=== PATIENT | male | born 1970 | race American Indian/Alaskan Native ===

== ENCOUNTER 2024-10-05 14:07 | Outpatient (RCR) | payer MEDICAID, SELFPAY ==
--- NOTE | 2024-10-11 02:07 | CTCFLWUP_ITS ---
Patient: JUANCARLOS BROWN : 1970 Page 2 of 3 FOLLOW UP NOTE DATE OF SERVICE: 10/05/2024 NAME: JUANCARLOS BROWN ACCOUNT: [id number] : 1970 AGE: 53 INTERVAL HISTORY: Patient has not followed with oncology and is now here for establishing care. 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 S/p segmental colectomy with colostomy placement on 02/04/2023. Currently on adjuvant 5-FU and leucovorin Methamphetamine abuse. Has been abusing for last 30 years. Last use was on 02/02/2023. Intermittent cocaine abuse. REASON FOR TODAY?S VISIT: Patient is saying that he did not continue his chemotherapy as per plan. He is requesting to restart him on treatment malignant neoplasm of sigmoid colon [ICD10] C18.7 DATE OF DIAGNOSIS: 02/02/2023 PATHOLOGY: Low-grade invasive adenocarcinoma of the sigmoid colon STAGE/TNM: Stage II [id number] TREATMENT HISTORY: Care?Plan Start?Date Cycle Day Intent 5?FU?and?leucovorin 03/17/2023 1 56 Curative?(adjuvant) HISTORY OF PRESENT ILLNESS: Juancarlos Brown is a 53-year-old ENG speaking male with history of methamphetamine use for last 30 years last use was on 02/02/2023 as well as cocaine use intermittently has the following oncology history. 11/08/2022: The patient was brought into emergency room by EMS because of unresponsiveness. He was administered Narcan. Patient eventually recovered very well. Patient admitted to cocaine use. 02/02/2023: Patient was seen at [facility] emergency department for abdominal pain and distention of [address] scan of the abdomen and pelvis without contrast was obtained. 02/04/2023: Mr. Brown had exploratory laparotomy, resection of the distal descending colon and sigmoid with end descending colostomy, incidental appendectomy. 02/06/2023: CT scan of the chest abdomen and pelvis with IV contrast 02/19/2023: Mr. Brown had ankush removed from the incision site. OTHER MEDICAL HISTORY/CONDITIONS: colon?mony?high?blood?pressue laser to stomach due to ulceration advil od. FAMILY HISTORY: Cancer History:? 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 None Medications Last Reconciled by Sirena Ortiz MD on 10/05/2024 ALLERGIES: No Known Drug Allergies REVIEW OF SYSTEMS: A complete 14-point review of systems was performed and is negative except as noted in interval history. PHYSICAL EXAMINATION: VITAL SIGNS: Temperature?98.3, B/P?133/85, Oxygen?Saturation?96% Weight?199?lbs PAIN: 0 - No pain ECOG Performance Status: 0 - Asymptomatic and fully active GENERAL APPEARANCE: Appears well, in no apparent distress, appropriately interactive. HEENT: Normocephalic, no temporal wasting, normal conjunctiva, no scleral icterus, normal hearing, lips without lesions, neck normal range of motion. CARDIOVASCULAR: Not assessed. PULMONARY: Normal respiratory effort, no respiratory distress or use of accessory muscles, speaking in full sentences, no tachypnea. EXTREMITIES: No pedal edema or cyanosis. SKIN: Normal skin appearance. NEUROLOGIC: Alert and oriented x4. PSHYCHIATRIC: Appropriate affect, mood normal, behavior normal, intact thought and speech. LABORATORY DATA: I have personally reviewed and interpreted each of the patient?s relevant lab tests, abnormal findings are below: Date 06/20/23 07/18/23 ??WHITE?BLOOD?COUNT?(Thou/mm3) ? 8.6 ??RED?BLOOD?COUNT?(Miln/mm3) ? 4.47?L ??HEMOGLOBIN?(gm/dl) ? 13.7 ??HEMATOCRIT?(%) ? 40.2?L ??PLATELET?COUNT?(Thou/mm3) ? 239 ??NEUTROPHILS?%,?AUTO?(%) ? 65 ??LYMPH?%,?AUTO?(%) ? 18 ??NEUTROPHILS,?AUTO?(Thou/mm3) ? 5.6 ??GLUCOSE,RANDOM?(mg/dL) 106 90 ??BLOOD?UREA?NITROGEN?(mg/dL) 15 17 ??CREATININE?(mg/dL) 0.90 0.90 ??SODIUM?(mmol/L) 138 139 ??POTASSIUM?(mmol/L) 3.8 3.1?L ??CHLORIDE?(mmol/L) 109?H 107 ??CrCl?(CandG)?(ml/min) 115.73 113.81 ??AST/SGOT?(Unit/L) 15 39?H ??ALT/SGPT?(Unit/L) 9?L 16 ??ALKALINE?PHOSPHATASE?(Unit/L) 79 86 ??BILIRUBIN,?TOTAL?(mg/dL) 1.0 1.5?H ??PROTEIN?TOTAL?(gm/dl) 7.3 7.4 ??ALBUMIN,?SERUM?(gm/dl) 4.5 4.6 ??GLOBULIN?(gm/dl) 2.8 2.8 ??ALBUMIN/GLOBULIN?RATIO 1.6 1.6 ??CALCIUM,?SERUM?(mg/dL) 9.4 9.5 ??CALCIUM?SERUM?(CORRECTED)?(mg/dL) 9.4 9.5 ??CEA?(O*)?(ng/ml) ? 2.0 ASSESSMENT/PLAN: 1. 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 S/p segmental colectomy with colostomy placement on 02/04/2023. 2. Methamphetamine abuse. Has been abusing for last 30 years. Last use was on 02/02/2023. 3. Intermittent cocaine abuse. 4. Mr. Brown states that he decided not to use drugs anymore. He also states that he wants to live long and do everything possible to prevent the cancer from recurrence. It is very uncertain if patient received any chemotherapy or radiation Patient did have low risk cancer I will order imaging as well as iron studies as patient had been anemic Discussed that I cannot resume treatment right now as it has been very delayed Will do Lauryn testing ORDERS: Order # Description [id number] CT Scan + Abdomen and Pelvis + Chest + With W/O Contrast [id number] Follow Up 2 Months + Comprehensive Metabolic Panel - 12 + CBC with Auto Diff + CEA + [id number] Follow Up 2 Months [id number] Ferritin + Vitamin B-12 + Folic Acid; Serum + Reticulocyte Count RETURN TO CLINIC: I reviewed the diagnosis, prognosis, and recommended treatment/procedure options with the patient (and/or their legal public service representative), including the potential benefits, risks, side effects and alternative therapies. We also discussed the option of no treatment and the possibility of clinical trial participation, if applicable. All questions were addressed, and they demonstrated understanding. They provided informed consent to proceed with the proposed plan of care. BILLING AND COMPLIANCE: I reviewed external records from providers outside my specialty as summarized above. I spent a total of 50 minutes on this patient?s care on the day of their visit excluding time spent related to any billed procedures. This time includes time spent with the patient as well as time spent documenting in the medical record, reviewing patients records and tests, obtaining history, placing orders, communicating with other healthcare professionals, counseling the patient, family or caregiver, and/or care coordination for the diagnoses above. Electronically Signed by: Jae Last MD T: 2:04 AM CC: PCP: Referring: Jae Last This document was completed utilizing speech recognition software. Grammatical errors, random word insertions, pronoun errors, and incomplete sentences are an occasional consequence of this system due to software limitations, ambient noise, and hardware issues. Any formal questions or concerns about the content, text or information contained within the body of this dictation should be directly addressed to the provider for clarification.
== END 2024-10-31 23:59 | disposition home or self-care (01) ==
LOC: SCTC 14:07
PROVIDERS: PCP Nurse Practitioner Family; Referring Provider Internal Medicine Hematology & Oncology; Visit Provider Internal Medicine Hematology & Oncology
DX: C18.7 Malignant neoplasm of sigmoid colon (principal); Z90.49 Acquired absence of other specified parts of digestive tract; Z93.3 Colostomy status; F15.10 Other stimulant abuse, uncomplicated; F14.10 Cocaine abuse, uncomplicated; D64.9 Anemia, unspecified
CPT/HCPCS: 99212; G0463

== ENCOUNTER 2024-10-21 06:40 | Day surgery (SDC) | payer MEDICAID, SELFPAY ==
[2024-10-20 16:03] LABS: Anion Gap 9 (7-16); BUN/Creatinine Ratio 16 Ratio (12-20); Blood Urea Nitrogen 14 mg/dL (9-23); Calcium 9.8 mg/dL (8.3-10.6); Carbon Dioxide 24.7 mMol/L (20.0-31.0); Chloride 109 mMol/L (98-107); Creatinine (Component) 0.9 mg/dL (0.6-1.3); Glucose 84 mg/dL (74-106); Osmolality,Calculated 284 (275-295); Potassium 3.9 mMol/L (3.4-5.1); Sodium 143 mMol/L (136-145); eGFR > 60 See Note
[2024-10-21 07:13] VITALS: BP 132/84; PULSE 81; RESP 15; TEMP 36.6; O2SAT 95
[2024-10-21 07:17] VITALS: BMI 39.8
[2024-10-21 07:28] VITALS: BP 136/75; PULSE 81; RESP 17; O2SAT 97
[2024-10-21] MEDS: SODIUM CHLORIDE 0.9% 500 ML 500 ML 20 ML IV (07:30)
[2024-10-21 08:07] VITALS: BP 115/73; PULSE 89; RESP 26; TEMP 36.2; O2SAT 96
[2024-10-21 08:17] VITALS: BP 122/79; PULSE 89; RESP 17; O2SAT 98
[2024-10-21 08:27] VITALS: BP 128/76; PULSE 83; RESP 22; O2SAT 98
== END 2024-10-21 08:34 | disposition home or self-care (01) ==
PROVIDERS: Anesthesiology; PCP Nurse Practitioner Family; Referring Provider Surgery; Visit Provider Surgery
PROC: 0DBE8ZX Excision of Large Intestine, Via Natural or Artificial Opening Endoscopic, Diagnostic (ICD-10-PCS; CPT 45380; principal; 2024-10-21 07:30)
DX: Z12.11 Encounter for screening for malignant neoplasm of colon (principal); C18.6 Malignant neoplasm of descending colon; C18.7 Malignant neoplasm of sigmoid colon; D12.3 Benign neoplasm of transverse colon; Z85.038 Personal history of other malignant neoplasm of large intestine; K62.89 Other specified diseases of anus and rectum; K57.30 Diverticulosis of large intestine without perforation or abscess without bleeding; I10 Essential (primary) hypertension; Z93.3 Colostomy status
CPT/HCPCS: 44394; 36415; 80048; A4649; J7999

== ENCOUNTER → 2024-11-12 | Outpatient (CLI) | payer MEDICAID, SELFPAY ==
--- NOTE | 2024-11-12 11:00 | XR_ITS ---
Examination: CT chest with intravenous contrast CT abdomen with intravenous contrast CT pelvis with intravenous contrast CT chest without intravenous contrast CT abdomen without intravenous contrast. CT pelvis without intravenous contrast. 2-D coronal and sagittal reconstructions Time of exam: November 12, 2024, 1159 hours, comparison February 06, 2023 chest abdomen pelvis, CT abdomen pelvis February 02, 2023 INDICATIONS: Diagnosis malignant neoplasm colon one year ago, post surgery chemotherapy restaging CTDI: vol (mGy) : 30.71 DLP: (mGycm): 1733 Technique: Multiple axial images of the chest, abdomen and pelvis with intravenous contrast, 3.0 mm slice thickness. Images obtained post intravenous injection Isovue 370 60 cc. 2-D sagittal and coronal reconstructions. Low dose protocols were performed. One or more of the following dose reduction techniques were used; automated exposure control, adjustment of the mA and/or KV according to patient size, use of iterative reconstruction technique. Findings: No thoracic aortic aneurysmal dilatation. No pulmonary artery filling defects. No paratracheal tracheobronchial or bronchopulmonary adenopathy. 2 mm pulmonary nodule right upper lobe image 120 3 mm pulmonary nodule left upper lobe image 140 Atelectasis in the lingular segment No pneumonia, pulmonary edema or pleural disease. No visualized liver or splenic lesions. No gallstones. No pancreatic or adrenal mass No renal or ureteral calculi, no hydronephrosis Aorta normal size Left ileostomy No interval pathologic abdominal or pelvic lymphadenopathy Sutures in the sigmoid colon Normal seminal vesicles No prostatomegaly Urinary bladder intact Moderate osteopenia Osseous structures intact IMPRESSION: 2 mm pulmonary nodule right upper lobe 3 mm pulmonary nodule left upper lobe Recommend 6 month follow-up CT chest without contrast No interval metastatic disease in the abdomen or pelvis
== END | disposition home or self-care (01) ==
PROVIDERS: PCP Nurse Practitioner Family; Referring Provider Internal Medicine Hematology & Oncology; Visit Provider Internal Medicine Hematology & Oncology
DX: R91.8 Other nonspecific abnormal finding of lung field (principal); C18.7 Malignant neoplasm of sigmoid colon
CPT/HCPCS: 71270; 74178; A4649; Q9967

== ENCOUNTER 2025-02-11 10:45 | Inpatient (IN) | payer MEDICAID, SELFPAY ==
--- NOTE | 2025-02-09 12:50 | EKG_ITS ---
[facility] Test Date: 2025-02-09 Pat Name: JUANCARLOS ZABALA Department: Room: - Gender: Male Financial Underwriter: : 1970 Requested By: Daniela Pacheco Order Number: [id number] Reading MD: Daniela Pacheco Measurements Intervals Lucile Rate: 88 P: 55 SC: 148 QRS: 72 QRSD: 158 T: 57 QT: 404 QTc: 490 Interpretive Statements SINUS RHYTHM RIGHT BUNDLE BRANCH BLOCK [120+ ms QRS DURATION, UPRIGHT V1, 40+ ms S IN I/aVL/V4/V5/V6] SEPTAL MYOCARDIAL INFARCTION , OF INDETERMINATE AGE [40+ ms Q WAVE IN V1/V2] Compared to ECG 02/02/2023 16:34:57 Myocardial infarct finding now present Sinus tachycardia no longer present Indeterminate axis no longer present /store/S0/[id number]/ecg/[id number].pdf
[2025-02-09 13:00] VITALS: BMI 35.6
[2025-02-09 14:45] LABS: Basophils # (Auto) 0.1 Thou/mm3 (0.0-0.2); Basophils % (Auto) 1 % (0-2.5); Eosinophils # (Auto) 0.4 Thou/mm3 (0.0-0.5); Eosinophils % (Auto) 8 % (0-10); Hematocrit 41.2 % (41.0-53.0); Hemoglobin 14.4 g/dL (13.5-16.0); Immature Granulocytes Auto 0.02 Thou/mm3 (0.00-0.00); Lymphocytes # (Auto) 1.4 Thou/mm3 (1.0-4.8); Lymphocytes % (Auto) 29 % (10-50); Mean Corpuscular HGB Conc 35.0 g/dl (31.0-37.0); Mean Corpuscular Hemoglobin 30.6 pg (25.0-35.0); Mean Corpuscular Volume 88 fL (80-100); Monocytes # (Auto) 0.6 Thou/mm3 (0.0-0.8); Monocytes % (Auto) 13 % (0-12); Neutrophils # (Auto) 2.3 Thou/mm3 (1.8-7.7); Neutrophils % (Auto) 49 % (37-80); Nucleated Red Blood Cell # 0.00 Thou/mm3 (0.00-0.00); Nucleated Red Blood Cell % 0 /100 WBC (0); Platelet Count 244 Thou/mm3 (140-440); RDW Standard Deviation 41.2 fL (35.1-43.9); Red Blood Count 4.70 Miln/mm3 (4.50-5.90); White Blood Count 4.8 Thou/mm3 (3.8-10.6)
[2025-02-09 14:55] LABS: Anion Gap 11 (7-16); Calcium 9.3 mg/dL (8.3-10.6); Carbon Dioxide 25.4 mMol/L (20.0-31.0); Chloride 110 mMol/L (98-107); Potassium 4.2 mMol/L (3.4-5.1); Sodium 146 mMol/L (136-145)
[2025-02-09 14:58] LABS: BUN/Creatinine Ratio 15 Ratio (12-20); Blood Urea Nitrogen 17 mg/dL (9-23); Creatinine (Component) 1.1 mg/dL (0.6-1.3); Estimated Creatinine Clearance 98.7 mL/min (>60); Glucose 123 mg/dL (74-106); Osmolality,Calculated 293 (275-295); eGFR > 60 See Note
--- NOTE | 2025-02-10 15:07 | SUR.PREOP ---
Pt notified to come in at 1100 tomorrow for surgery.
[2025-02-11] VITALS (12 sets, daily range): BP systolic 113–156; BP diastolic 68–99; PULSE 78–101; RESP 12–93; TEMP 36–36.7; O2SAT 95–99; BMI 36.3
--- NOTE | 2025-02-11 11:30 | SUR.PREOP ---
Stated he drank a whole 16oz bottle of water this morning at 0700. Dr. Perkins made aware, states ok to proceed with surgery.
--- NOTE | 2025-02-11 16:17 | PD.SUROPNT ---
Date of Procedure 02/11/25 Pre Op Diagnosis History of sigmoid cancer status post sigmoid colectomy with end colostomy Post Op Diagnosis History of sigmoid cancer status post sigmoid colectomy with end colostomy Procedure Exploratory laparotomy, extensive lysis of adhesions and mobilization of splenic flexure Reversal of colostomy Findings Significant adhesions from previous operation. Moderate size parastomal hernia. No evidence of abdominal or peritoneal nodules. The surface of liver was smooth without nodules or any lesions Anesthesia GETA Pathology / specimen Other (Rectal stump and colostomy stump) Estimated Blood Loss 50 Condition Stable Disposition PACU Surgeon Daniela Pacheco MD Surgical Staff Operation Date: 02/11/25 13:15 Case Staff Anesthesiologist: Benito Perkins RN First Assistant: Teresita Black RNkeycase assembler: Ivy Sanchez
--- NOTE | 2025-02-11 16:19 | SUR.PHASEI ---
8041 Patient arrived to recovery, resting comfortably in bed, sleeping in bed able to arouse- then drifts back to sleep, on oxygen 8L via oxy mask, breathing unlabored, vitals signs stable, denies pain and nausea, dressing intact to abdomen ankush, gauze, medipore tape, abdominal binder, no bleeding noted, 16F bunch catheter in place with leg secure; draining to gravity, report received from Dr. Perkins and Kelechi CARMICHAEL
--- NOTE | 2025-02-11 17:00 | SUR.PHASEI ---
1700 patient transported via bed to room 383 without incident, Leta CARMICHAEL promptly in patient room, patients mom arrived in room as well, patient resting comfortably in bed with call light in reach when this content writer left patients room
--- NOTE | 2025-02-11 18:00 | PC.NURSE ---
Recieved report from Gwen in PACU. she stated that since the pt is comfortable at this time, Dunia said to wait on the INTERNATIONAL TRAVEL CONSULTANT until he is startting to have pain and actually needs it
[2025-02-11] MEDS: KCL 20 mEq/L in D5-1/2NS 20 MEQ/1,000 ML BAG 70 MEQ IV (18:25)
[2025-02-11] MEDS: CEFOXITIN 2 GM in SODIUM CHLORIDE 0.9% (Popper) 50 ML IV (18:38)
[2025-02-11] MEDS: DOCUSATE SOD 100 MG CAPSULE PO (20:33)
[2025-02-11] MEDS: ASCORBIC ACID 250 MG TABLET 500 MG PO (20:33)
[2025-02-11] MEDS: MIRTAZAPINE 15 MG TABLET 45 MG PO (20:34)
[2025-02-11] MEDS: ACETAMINOPHEN IVPB 1,000 MG/100 ML VIAL 250 MG IV (20:36)
[2025-02-11] MEDS: ALBUTEROL/IPRATROPIUM (Duoneb) RT SOL 3 ML NEBU INH (22:48)
[2025-02-12] VITALS (12 sets, daily range): BP systolic 122–139; BP diastolic 76–89; PULSE 83–105; RESP 16–92; TEMP 36.3–37.2; O2SAT 92–100; BMI 29.0
[2025-02-12] MEDS: CEFOXITIN 2 GM in SODIUM CHLORIDE 0.9% (Popper) 50 ML IV ×5 (01:03→23:36)
[2025-02-12] MEDS: HYDROmorphone 1 MG/ML PCA SYRINGE 30ML PCA (01:12)
[2025-02-12] MEDS: ACETAMINOPHEN IVPB 1,000 MG/100 ML VIAL 250 MG IV ×3 (05:18→17:12)
[2025-02-12] MEDS: ALBUTEROL/IPRATROPIUM (Duoneb) RT SOL 3 ML NEBU INH ×3 (07:40→23:12)
[2025-02-12] MEDS: ASCORBIC ACID 250 MG TABLET 500 MG PO ×2 (08:37→20:11)
[2025-02-12] MEDS: ZINC SULFATE 220 MG CAPSULE PO (08:37)
[2025-02-12] MEDS: BuPROPion HCL XL 150 MG TABCR PO (08:37)
[2025-02-12] MEDS: KCL 20 mEq/L in D5-1/2NS 20 MEQ/1,000 ML BAG 70 MEQ IV (08:44)
--- NOTE | 2025-02-12 09:56 | ESPR_ITS ---
Documentation for date of: 02/12/25 Subjective Subjective Narrative: Patient is seen and examined. He is resting comfortably. His pain is controlled with ASSISTANT MECHANIC. He denies nausea or vomiting Exam Vital Signs Temp Pulse Resp BP Pulse Ox O2 Del Method O2 Flow Rate 97.4 F 100 19 138/81 H 95 Room Air 2 02/12/25 08:00 02/12/25 08:00 02/12/25 08:00 02/12/25 08:00 02/12/25 08:00 02/12/25 04:00 02/12/25 07:40 Constitutional Constitutional: no acute distress Routine Abdominal Exam Comments: Abdomen is soft and mildly distended. Incisions with dressing clean, dry and intact. Bowel sounds are absent today Assessment & Plan Assessment Additional comments: Postop day #1 status post exploratory laparotomy, extensive lysis of adhesions and reversal of colostomy Plan Continue IV antibiotics. Use incentive spirometer and increase ambulation. Will DC Morales catheter tomorrow. Start patient on PPN PROCEDURES: Procedures Exploratory laparotomy, extensive lysis of adhesions and mobilization of splenic flexure Reversal of colostomy
[2025-02-12 17:09] LABS: Alanine Aminotransferase 17 U/L (10-49); Albumin, Serum 4.1 gm/dL (3.5-5.0); Albumin/Globulin Ratio 1.6 (1.2-2.2); Alkaline Phosphatase 53 U/L (46-116); Anion Gap 9 (7-16); Aspartate Amino Transferase 17 U/L (0-34); BUN/Creatinine Ratio 14 Ratio (12-20); Bilirubin,Total 0.9 mg/dL (0.3-1.2); Blood Urea Nitrogen 19 mg/dL (9-23); Calcium 8.4 mg/dL (8.3-10.6); Calcium (Corrected) 8.4 mg/dL (8.5-10.1); Carbon Dioxide 23.9 mMol/L (20.0-31.0); Chloride 107 mMol/L (98-107); Creatinine (Component) 1.4 mg/dL (0.6-1.3); Estimated Creatinine Clearance 70.4 mL/min (>60); Globulin 2.5 gm/dL (2.3-3.5); Glucose 114 mg/dL (74-106); Magnesium 1.8 mg/dL (1.6-2.6); Osmolality,Calculated 282 (275-295); Phosphorous 3.3 mg/dL (2.4-5.1); Potassium 4.0 mMol/L (3.4-5.1); Sodium 140 mMol/L (136-145); Total Protein 6.6 gm/dL (5.7-8.2); eGFR > 60 See Note
[2025-02-12] MEDS: SODIUM CHLORIDE 0.45 % 1,000 ML 70 ML IV (17:36)
[2025-02-12] MEDS: MULTIVITAMIN INJ 10 ML in AMINO ACID 4.25%/D5W E 2,000 ML 83.75 ML IV (18:06)
[2025-02-12] MEDS: DOCUSATE SOD 100 MG CAPSULE PO (20:11)
[2025-02-12] MEDS: MIRTAZAPINE 15 MG TABLET 45 MG PO (20:11)
[2025-02-13] VITALS (12 sets, daily range): BP systolic 123–148; BP diastolic 77–94; PULSE 70–125; RESP 16–100; TEMP 36.6–37.7; O2SAT 88–100
[2025-02-13] MEDS: CEFOXITIN 2 GM in SODIUM CHLORIDE 0.9% (Popper) 50 ML IV ×4 (05:03→23:35)
[2025-02-13 05:48] LABS: Basophils # (Auto) 0.0 Thou/mm3 (0.0-0.2); Basophils % (Auto) 0 % (0-2.5); Eosinophils # (Auto) 0.0 Thou/mm3 (0.0-0.5); Eosinophils % (Auto) 0 % (0-10); Hematocrit 37.1 % (41.0-53.0); Hemoglobin 12.8 g/dL (13.5-16.0); Immature Granulocytes Auto 0.04 Thou/mm3 (0.00-0.00); Lymphocytes # (Auto) 1.0 Thou/mm3 (1.0-4.8); Lymphocytes % (Auto) 10 % (10-50); Mean Corpuscular HGB Conc 34.5 g/dl (31.0-37.0); Mean Corpuscular Hemoglobin 31.1 pg (25.0-35.0); Mean Corpuscular Volume 90 fL (80-100); Monocytes # (Auto) 0.7 Thou/mm3 (0.0-0.8); Monocytes % (Auto) 7 % (0-12); Neutrophils # (Auto) 8.1 Thou/mm3 (1.8-7.7); Neutrophils % (Auto) 82 % (37-80); Nucleated Red Blood Cell # 0.00 Thou/mm3 (0.00-0.00); Nucleated Red Blood Cell % 0 /100 WBC (0); Platelet Count 232 Thou/mm3 (140-440); RDW Standard Deviation 44.6 fL (35.1-43.9); Red Blood Count 4.11 Miln/mm3 (4.50-5.90); White Blood Count 9.8 Thou/mm3 (3.8-10.6)
[2025-02-13 06:12] LABS: Albumin, Serum 3.8 gm/dL (3.5-5.0); Anion Gap 12 (7-16); BUN/Creatinine Ratio 12 Ratio (12-20); Blood Urea Nitrogen 17 mg/dL (9-23); Calcium 8.2 mg/dL (8.3-10.6); Calcium (Corrected) 8.4 mg/dL (8.5-10.1); Carbon Dioxide 23.4 mMol/L (20.0-31.0); Chloride 106 mMol/L (98-107); Creatinine (Component) 1.4 mg/dL (0.6-1.3); Estimated Creatinine Clearance 70.4 mL/min (>60); Glucose 122 mg/dL (74-106); Magnesium 2.0 mg/dL (1.6-2.6); Osmolality,Calculated 283 (275-295); Phosphorous 2.8 mg/dL (2.4-5.1); Potassium 4.1 mMol/L (3.4-5.1); Sodium 141 mMol/L (136-145); eGFR > 60 See Note
[2025-02-13] MEDS: ALBUTEROL/IPRATROPIUM (Duoneb) RT SOL 3 ML NEBU INH ×3 (07:27→22:36)
[2025-02-13] MEDS: DOCUSATE SOD 100 MG CAPSULE PO ×2 (08:25→20:07)
[2025-02-13] MEDS: ZINC SULFATE 220 MG CAPSULE PO (08:25)
[2025-02-13] MEDS: ASCORBIC ACID 250 MG TABLET 500 MG PO ×2 (08:25→20:07)
[2025-02-13] MEDS: BuPROPion HCL XL 150 MG TABCR PO (08:25)
[2025-02-13] MEDS: NICOTINE PATCH 21 MG/24 HR PATCH.TD24 TOP (08:28)
--- NOTE | 2025-02-13 08:49 | ESPR_ITS ---
Documentation for date of: 02/13/25 Subjective Subjective Narrative: Patient is seen and examined. He is resting comfortably and his pain is well- controlled. He denies nausea or vomiting. He has not passed flatus or bowel movement yet Exam Vital Signs Temp Pulse Resp BP Pulse Ox O2 Del Method O2 Flow Rate 98.1 F 81 20 148/94 H 100 Nasal Cannula 4 02/13/25 04:00 02/13/25 07:27 02/13/25 07:27 02/13/25 04:00 02/13/25 07:27 02/13/25 04:00 02/13/25 04:00 Constitutional Constitutional: no acute distress Routine Abdominal Exam Comments: Abdomen is soft and mildly distended. Bowel sounds are absent. Incisions with dressings clean, dry and intact Assessment & Plan Assessment Additional comments: Postop day #2 status post exploratory laparotomy, extensive lysis of adhesions and reversal of colostomy Plan Continue IV antibiotics. Keep n.p.o. except ice chips. Continue PPN. DC Morales catheter. Increase ambulation and use incentive spirometer. PROCEDURES: Procedures Exploratory laparotomy, extensive lysis of adhesions and mobilization of splenic flexure Reversal of colostomy
[2025-02-13] MEDS: ENOXAPARIN SOD INJ 40 MG/0.4 ML SYRINGE SC (09:10)
--- NOTE | 2025-02-13 15:15 | PC.SS ---
Roberto Carlos Brown is a 54 year-old male admitted to [facility] for EX Lap. SS conducted bedside contact with the patient to complete initial assessment and to discuss discharge planning. Role and reason explained. Patient confirmed demographic information. Patient identifies his Mom Uli Brown [phone] or dad iPeter Brown [phone] as his surrogate decision maker. Pt states he is able to complete all ADL?s independent. Pt does not possesses any DME, pt is currently residing at the [facility] in [place]. Pts PCP is Jade Varner. [place] [facility] [place] discussed and the pt wishes to return to recovery home.? Pt family will provide transport. No further intervention required at this time, social work program coordinator would be available to address any further concerns. DC Plan: [facility] Contact: Mom/Dad Address: Confirmed on face sheet PCP: Telly
--- NOTE | 2025-02-13 17:26 | PC.NURSE ---
Patient had one episode of bright red bm/discharge from rectum. Unable to reach Dr. Pacheco, message left. Patient denies pain or any discomfort.
--- NOTE | 2025-02-13 18:30 | PC.NURSE ---
Dr. Pacheco aware of bloody discharge from rectum. Per MD, continue to monitor stools. No new orders received.
[2025-02-14] VITALS (9 sets, daily range): BP systolic 95–150; BP diastolic 56–93; PULSE 72–118; RESP 16–93; TEMP 36.2–37.1; O2SAT 92–100
[2025-02-14] MEDS: CEFOXITIN 2 GM in SODIUM CHLORIDE 0.9% (Popper) 50 ML IV ×4 (05:25→23:45)
[2025-02-14 07:19] LABS: Alanine Aminotransferase 12 U/L (10-49); Albumin, Serum 4.0 gm/dL (3.5-5.0); Albumin/Globulin Ratio 1.4 (1.2-2.2); Alkaline Phosphatase 51 U/L (46-116); Anion Gap 9 (7-16); Aspartate Amino Transferase 14 U/L (0-34); BUN/Creatinine Ratio 13 Ratio (12-20); Bilirubin,Total 0.9 mg/dL (0.3-1.2); Blood Urea Nitrogen 17 mg/dL (9-23); Calcium 9.0 mg/dL (8.3-10.6); Calcium (Corrected) 9.0 mg/dL (8.5-10.1); Carbon Dioxide 24.6 mMol/L (20.0-31.0); Chloride 107 mMol/L (98-107); Creatinine (Component) 1.3 mg/dL (0.6-1.3); Estimated Creatinine Clearance 75.8 mL/min (>60); Globulin 2.8 gm/dL (2.3-3.5); Glucose 115 mg/dL (74-106); Magnesium 1.9 mg/dL (1.6-2.6); Osmolality,Calculated 283 (275-295); Phosphorous 3.9 mg/dL (2.4-5.1); Potassium 4.1 mMol/L (3.4-5.1); Sodium 141 mMol/L (136-145); Total Protein 6.8 gm/dL (5.7-8.2); Triglycerides 249 mg/dL (30-150); eGFR > 60 See Note
[2025-02-14] MEDS: ALBUTEROL/IPRATROPIUM (Duoneb) RT SOL 3 ML NEBU INH ×2 (07:23→22:51)
[2025-02-14] MEDS: DOCUSATE SOD 100 MG CAPSULE PO ×2 (09:21→20:35)
[2025-02-14] MEDS: ENOXAPARIN SOD INJ 40 MG/0.4 ML SYRINGE SC (09:21)
[2025-02-14] MEDS: ZINC SULFATE 220 MG CAPSULE PO (09:21)
[2025-02-14] MEDS: BuPROPion HCL XL 150 MG TABCR PO (09:21)
[2025-02-14] MEDS: ASCORBIC ACID 250 MG TABLET 500 MG PO ×2 (09:21→20:35)
[2025-02-14] MEDS: NICOTINE PATCH 21 MG/24 HR PATCH.TD24 TOP (09:21)
--- NOTE | 2025-02-14 10:07 | CHAP ---
Patient expressed gratitude for visit and prayer.
--- NOTE | 2025-02-14 11:20 | PD.SURPROG ---
Documentation for date of: 02/14/25 Subjective Subjective Narrative: Patient is seen and examined. He is resting comfortably. He is voiding without difficulty. He has not had flatus yet. He has noted some bleeding per rectum last night that subsided Exam Vital Signs Temp Pulse Resp BP Pulse Ox O2 Del Method O2 Flow Rate 98.4 F 114 H 18 110/88 H 92 L Room Air 2 02/14/25 08:00 02/14/25 08:00 02/14/25 08:00 02/14/25 08:00 02/14/25 08:00 02/14/25 08:00 02/14/25 03:52 Constitutional Constitutional: no acute distress Routine Abdominal Exam Comments: Abdomen is soft and mildly distended. He has hypoactive bowel sounds. Incisions are clean, dry and intact Assessment & Plan Assessment Additional comments: Postop day #3 status post exploratory laparotomy, extensive lysis of adhesions and reversal of colostomy Plan Continue IV antibiotics. Keep n.p.o. except ice chips and continue PPN. Awaiting for return of GI function PROCEDURES: Procedures Exploratory laparotomy, extensive lysis of adhesions and mobilization of splenic flexure Reversal of colostomy
[2025-02-14] MEDS: FAT EMULSIONS 20% IV 500 ML 32 ML IV (17:15)
[2025-02-14] MEDS: MIRTAZAPINE 15 MG TABLET 45 MG PO (20:35)
[2025-02-15] VITALS (11 sets, daily range): BP systolic 120–144; BP diastolic 78–97; PULSE 64–109; RESP 16–97; TEMP 36.1–37.3; O2SAT 92–98
[2025-02-15] MEDS: CEFOXITIN 2 GM in SODIUM CHLORIDE 0.9% (Popper) 50 ML IV ×3 (05:43→16:54)
[2025-02-15 05:48] LABS: Basophils # (Auto) 0.1 Thou/mm3 (0.0-0.2); Basophils % (Auto) 1 % (0-2.5); Eosinophils # (Auto) 0.8 Thou/mm3 (0.0-0.5); Eosinophils % (Auto) 10 % (0-10); Hematocrit 37.8 % (41.0-53.0); Hemoglobin 12.5 g/dL (13.5-16.0); Immature Granulocytes Auto 0.03 Thou/mm3 (0.00-0.00); Lymphocytes # (Auto) 1.1 Thou/mm3 (1.0-4.8); Lymphocytes % (Auto) 13 % (10-50); Mean Corpuscular HGB Conc 33.1 g/dl (31.0-37.0); Mean Corpuscular Hemoglobin 30.3 pg (25.0-35.0); Mean Corpuscular Volume 92 fL (80-100); Monocytes # (Auto) 0.9 Thou/mm3 (0.0-0.8); Monocytes % (Auto) 11 % (0-12); Neutrophils # (Auto) 5.4 Thou/mm3 (1.8-7.7); Neutrophils % (Auto) 65 % (37-80); Nucleated Red Blood Cell # 0.00 Thou/mm3 (0.00-0.00); Nucleated Red Blood Cell % 0 /100 WBC (0); Platelet Count 244 Thou/mm3 (140-440); RDW Standard Deviation 45.4 fL (35.1-43.9); Red Blood Count 4.13 Miln/mm3 (4.50-5.90); White Blood Count 8.3 Thou/mm3 (3.8-10.6)
[2025-02-15 06:27] LABS: Alanine Aminotransferase 11 U/L (10-49); Albumin, Serum 4.1 gm/dL (3.5-5.0); Albumin/Globulin Ratio 1.5 (1.2-2.2); Alkaline Phosphatase 56 U/L (46-116); Anion Gap 11 (7-16); Aspartate Amino Transferase 13 U/L (0-34); BUN/Creatinine Ratio 16 Ratio (12-20); Bilirubin,Total 0.5 mg/dL (0.3-1.2); Blood Urea Nitrogen 19 mg/dL (9-23); Calcium 9.0 mg/dL (8.3-10.6); Calcium (Corrected) 9.0 mg/dL (8.5-10.1); Carbon Dioxide 25.6 mMol/L (20.0-31.0); Chloride 104 mMol/L (98-107); Creatinine (Component) 1.2 mg/dL (0.6-1.3); Estimated Creatinine Clearance 82.1 mL/min (>60); Globulin 2.8 gm/dL (2.3-3.5); Glucose 109 mg/dL (74-106); Magnesium 1.9 mg/dL (1.6-2.6); Osmolality,Calculated 284 (275-295); Phosphorous 4.6 mg/dL (2.4-5.1); Potassium 4.2 mMol/L (3.4-5.1); Sodium 141 mMol/L (136-145); Total Protein 6.9 gm/dL (5.7-8.2); Triglycerides 342 mg/dL (30-150); eGFR > 60 See Note
[2025-02-15] MEDS: ALBUTEROL/IPRATROPIUM (Duoneb) RT SOL 3 ML NEBU INH ×3 (07:01→22:35)
[2025-02-15] MEDS: ASCORBIC ACID 250 MG TABLET 500 MG PO ×2 (08:19→20:35)
[2025-02-15] MEDS: DOCUSATE SOD 100 MG CAPSULE PO ×2 (08:19→20:34)
[2025-02-15] MEDS: ENOXAPARIN SOD INJ 40 MG/0.4 ML SYRINGE SC (08:19)
[2025-02-15] MEDS: ZINC SULFATE 220 MG CAPSULE PO (08:19)
[2025-02-15] MEDS: NICOTINE PATCH 21 MG/24 HR PATCH.TD24 TOP (08:19)
[2025-02-15] MEDS: HYDROmorphone 1 MG/ML PCA SYRINGE 30ML PCA (08:20)
--- NOTE | 2025-02-15 10:47 | ESPR_ITS ---
Documentation for date of: 02/15/25 Subjective Subjective Narrative: Patient is seen and examined. He has some incisional pain that is controlled with REFINING ENGINEER. He denies nausea or vomiting. He states that he may have passed flatus but no bowel movement yet Exam Vital Signs Temp Pulse Resp BP Pulse Ox O2 Del Method O2 Flow Rate 97.2 F 109 H 23 H 132/97 H 98 Nasal Cannula 2 02/15/25 04:00 02/15/25 07:01 02/15/25 07:01 02/15/25 04:00 02/15/25 07:01 02/15/25 04:00 02/15/25 04:00 Constitutional Constitutional: no acute distress Routine Abdominal Exam Comments: His abdomen is soft and mildly distended. Incisions are clean, dry and intact. He has hypoactive bowel sounds Assessment & Plan Assessment Additional comments: Postop day #4 status post exploratory laparotomy, extensive lysis of adhesions and reversal of colostomy Plan Continue IV antibiotics. Continue PPN and keep n.p.o., still awaiting for return of GI function. Use incentive spirometer and increase ambulation PROCEDURES: Procedures Exploratory laparotomy, extensive lysis of adhesions and mobilization of splenic flexure Reversal of colostomy
[2025-02-15] MEDS: BuPROPion HCL XL 150 MG TABCR PO (12:18)
[2025-02-15] MEDS: MIRTAZAPINE 15 MG TABLET 45 MG PO (20:34)
[2025-02-16] VITALS (9 sets, daily range): BP systolic 119–136; BP diastolic 82–99; PULSE 83–113; RESP 17–96; TEMP 36.8–37.4; O2SAT 91–99
[2025-02-16] MEDS: CEFOXITIN 2 GM in SODIUM CHLORIDE 0.9% (Popper) 50 ML IV ×5 (00:05→23:35)
--- NOTE | 2025-02-16 07:22 | CHAP ---
Patient was visited by a Spiritual Care Volunteer on 02/15/2025 between 0900 and 1130 and reeived comfort, encouragement and/or prayer.
[2025-02-16] MEDS: ALBUTEROL/IPRATROPIUM (Duoneb) RT SOL 3 ML NEBU INH ×3 (07:30→22:44)
[2025-02-16] MEDS: ENOXAPARIN SOD INJ 40 MG/0.4 ML SYRINGE SC (09:14)
[2025-02-16] MEDS: NICOTINE PATCH 21 MG/24 HR PATCH.TD24 TOP (09:14)
[2025-02-16] MEDS: BuPROPion HCL XL 150 MG TABCR PO (09:15)
[2025-02-16] MEDS: ASCORBIC ACID 250 MG TABLET 500 MG PO ×2 (09:15→20:27)
[2025-02-16] MEDS: DOCUSATE SOD 100 MG CAPSULE PO ×2 (09:15→20:28)
[2025-02-16] MEDS: ZINC SULFATE 220 MG CAPSULE PO (09:15)
--- NOTE | 2025-02-16 09:40 | CHAP ---
Patient was sleeping. Prayed quietly by bed.
--- NOTE | 2025-02-16 10:46 | PD.SURPROG ---
Documentation for date of: 02/16/25 Subjective Subjective Narrative: Pt is seen and examined. His pain is improving. He started passing flatus and had a small bowel movement Exam Vital Signs Temp Pulse Resp BP Pulse Ox O2 Del Method O2 Flow Rate 98.3 F 83 20 123/91 H 94 L Room Air 2 02/16/25 08:00 02/16/25 08:00 02/16/25 08:00 02/16/25 08:00 02/16/25 08:00 02/16/25 08:00 02/15/25 16:00 Constitutional Constitutional: no acute distress Routine Abdominal Exam Comments: Abdomen is soft and very minimally distended. Incisions are clean, dry and intact Assessment & Plan Assessment Additional comments: Postop day #5 status post exploratory laparotomy, extensive lysis of adhesions and reversal of colostomy Plan Start clear liquids. Continue to ambulate and use incentive spirometer PROCEDURES: Procedures Exploratory laparotomy, extensive lysis of adhesions and mobilization of splenic flexure Reversal of colostomy
[2025-02-16] MEDS: MULTIVITAMIN INJ 10 ML in AMINO ACID 4.25%/D5W E 2,000 ML 90 ML IV (14:16)
--- NOTE | 2025-02-16 16:00 | PC.SS ---
Follow up note: On PPN. On IV antibiotic. Pt will return home upon dc.
[2025-02-16] MEDS: FAT EMULSIONS 20% IV 500 ML 32 ML IV (17:54)
[2025-02-16] MEDS: MIRTAZAPINE 15 MG TABLET 45 MG PO (20:27)
[2025-02-17] VITALS (9 sets, daily range): BP systolic 100–136; BP diastolic 76–96; PULSE 86–109; RESP 16–98; TEMP 36.1–36.4; O2SAT 91–100; BMI 29.0
[2025-02-17] MEDS: CEFOXITIN 2 GM in SODIUM CHLORIDE 0.9% (Popper) 50 ML IV ×4 (05:22→23:34)
[2025-02-17 05:59] LABS: Basophils # (Auto) 0.1 Thou/mm3 (0.0-0.2); Basophils % (Auto) 1 % (0-2.5); Eosinophils # (Auto) 0.8 Thou/mm3 (0.0-0.5); Eosinophils % (Auto) 11 % (0-10); Hematocrit 38.0 % (41.0-53.0); Hemoglobin 12.7 g/dL (13.5-16.0); Immature Granulocytes Auto 0.08 Thou/mm3 (0.00-0.00); Lymphocytes # (Auto) 1.1 Thou/mm3 (1.0-4.8); Lymphocytes % (Auto) 15 % (10-50); Mean Corpuscular HGB Conc 33.4 g/dl (31.0-37.0); Mean Corpuscular Hemoglobin 30.2 pg (25.0-35.0); Mean Corpuscular Volume 91 fL (80-100); Monocytes # (Auto) 0.8 Thou/mm3 (0.0-0.8); Monocytes % (Auto) 11 % (0-12); Neutrophils # (Auto) 4.2 Thou/mm3 (1.8-7.7); Neutrophils % (Auto) 60 % (37-80); Nucleated Red Blood Cell # 0.00 Thou/mm3 (0.00-0.00); Nucleated Red Blood Cell % 0 /100 WBC (0); Platelet Count 292 Thou/mm3 (140-440); RDW Standard Deviation 44.3 fL (35.1-43.9); Red Blood Count 4.20 Miln/mm3 (4.50-5.90); White Blood Count 7.1 Thou/mm3 (3.8-10.6)
[2025-02-17 06:39] LABS: Alanine Aminotransferase 10 U/L (10-49); Albumin, Serum 4.2 gm/dL (3.5-5.0); Albumin/Globulin Ratio 1.4 (1.2-2.2); Alkaline Phosphatase 58 U/L (46-116); Anion Gap 12 (7-16); Aspartate Amino Transferase 13 U/L (0-34); BUN/Creatinine Ratio 17 Ratio (12-20); Bilirubin,Total 0.4 mg/dL (0.3-1.2); Blood Urea Nitrogen 19 mg/dL (9-23); Calcium 8.9 mg/dL (8.3-10.6); Calcium (Corrected) 8.9 mg/dL (8.5-10.1); Carbon Dioxide 24.8 mMol/L (20.0-31.0); Chloride 103 mMol/L (98-107); Creatinine (Component) 1.1 mg/dL (0.6-1.3); Estimated Creatinine Clearance 89.6 mL/min (>60); Globulin 3.0 gm/dL (2.3-3.5); Glucose 113 mg/dL (74-106); Magnesium 1.8 mg/dL (1.6-2.6); Osmolality,Calculated 282 (275-295); Phosphorous 4.4 mg/dL (2.4-5.1); Potassium 4.0 mMol/L (3.4-5.1); Sodium 140 mMol/L (136-145); Total Protein 7.2 gm/dL (5.7-8.2); Triglycerides 278 mg/dL (30-150); eGFR > 60 See Note
[2025-02-17] MEDS: ALBUTEROL/IPRATROPIUM (Duoneb) RT SOL 3 ML NEBU INH ×3 (07:28→23:45)
[2025-02-17] MEDS: ZINC SULFATE 220 MG CAPSULE PO (08:16)
[2025-02-17] MEDS: ASCORBIC ACID 250 MG TABLET 500 MG PO ×2 (08:16→20:02)
[2025-02-17] MEDS: NICOTINE PATCH 21 MG/24 HR PATCH.TD24 TOP (08:16)
[2025-02-17] MEDS: ENOXAPARIN SOD INJ 40 MG/0.4 ML SYRINGE SC (08:16)
[2025-02-17] MEDS: DOCUSATE SOD 100 MG CAPSULE PO (08:17)
[2025-02-17] MEDS: BuPROPion HCL XL 150 MG TABCR PO (08:17)
--- NOTE | 2025-02-17 11:22 | PD.SURPROG ---
Documentation for date of: 02/17/25 Subjective Subjective Narrative: Patient is seen and examined. His pain is improving. He is tolerating liquids without nausea or vomiting. He is passing flatus and had a bowel movement Exam Vital Signs Temp Pulse Resp BP Pulse Ox O2 Del Method O2 Flow Rate 97.4 F 95 18 119/79 93 L Room Air 0 02/17/25 08:00 02/17/25 08:00 02/17/25 08:00 02/17/25 08:00 02/17/25 08:00 02/17/25 04:00 02/17/25 04:00 Constitutional Constitutional: no acute distress Routine Abdominal Exam Comments: Abdomen is soft and nondistended. Incisions are clean, dry and intact Assessment & Plan Assessment Additional comments: Postop day #6 status post exploratory laparotomy, extensive lysis of adhesions and reversal of colostomy Plan Advance to soft diet and wean PPN to off. If continues to tolerate soft diet and have bowel movement, possible discharge home tomorrow PROCEDURES: Procedures Exploratory laparotomy, extensive lysis of adhesions and mobilization of splenic flexure Reversal of colostomy
[2025-02-17] MEDS: AMINO ACIDS 4.25 %/D5W 1,000 ML 60 ML IV (13:41)
[2025-02-17] MEDS: MIRTAZAPINE 15 MG TABLET 45 MG PO (20:02)
[2025-02-18] VITALS: BP 123/85; PULSE 101; RESP 16; TEMP 36.1; O2SAT 95
[2025-02-18 04:00] VITALS: BP 148/85; PULSE 93; RESP 18; TEMP 36.1; O2SAT 95
[2025-02-18] MEDS: CEFOXITIN 2 GM in SODIUM CHLORIDE 0.9% (Popper) 50 ML IV (05:26)
[2025-02-18 08:00] VITALS: BP 108/71; PULSE 97; RESP 18; TEMP 36.3; O2SAT 93
[2025-02-18] MEDS: ASCORBIC ACID 250 MG TABLET 500 MG PO (08:01)
[2025-02-18] MEDS: BuPROPion HCL XL 150 MG TABCR PO (08:01)
[2025-02-18] MEDS: ZINC SULFATE 220 MG CAPSULE PO (08:01)
[2025-02-18] MEDS: NICOTINE PATCH 21 MG/24 HR PATCH.TD24 TOP (08:04)
[2025-02-18] MEDS: ENOXAPARIN SOD INJ 40 MG/0.4 ML SYRINGE SC (08:05)
--- NOTE | 2025-02-18 09:52 | PC.SS ---
Follow up note: Pt completed PPN and had BM. Waiting for Dr. Pacheco to d/c. Pt will return home upon dc.
--- NOTE | 2025-02-18 12:35 | PD.SURDS ---
Planned Discharge Date 02/18/25 DS: Providers Provider Date of admission: 02/11/25 10:45 [facility] Admitting Provider: Daniela Pacheco MD Attending Provider on Admission: Daniela Pacheco MD Attending Provider on DC: Daniela Pacheco MD Discharging Provider: Daniela Pacheco MD Diagnosis Problem List Completed Was Problem List Reviewed/Reconciled?: Yes Hospital Course Brief History: 54-year-old male with history of obstructing sigmoid cancer underwent exploratory laparotomy with sigmoid colectomy and end colostomy. He has completed his chemo and radiation. Colonoscopy was unremarkable. His metastatic workup has been negative. Patient underwent exploratory laparotomy extensive lysis of adhesions and reversal of colostomy. His Morales catheter was removed on postop day #2, he was able to void without difficulty. Initially patient received PPN for nutrition. He was then started on clear liquids and his diet was gradually advanced. He was eating and tolerating diet well without nausea or vomiting. He started passing flatus and had bowel movements. He has remained hemodynamically stable and afebrile throughout hospitalization. His incisions are clean, dry and intact. He is being discharged home in stable condition. Exam Vital Signs Temp Pulse Resp BP Pulse Ox O2 Del Method O2 Flow Rate 97.4 F 97 18 108/71 93 L Room Air 0 02/18/25 08:00 02/18/25 08:00 02/18/25 08:00 02/18/25 08:00 02/18/25 08:00 02/18/25 08:00 02/18/25 04:00 Constitutional Constitutional: no acute distress Routine Abdominal Exam Comments: Abdomen is soft and nondistended. Bowel sounds are active and present. Incisions are clean, dry and intact Discharge Plan Plan Patient Disposition: HOME (Self Care) Prescriptions/Referrals Prescriptions/Med Rec: New hydrocodone-acetaminophen 10-325 mg Tablet 1 tab PO Q6HR MDD 4 PRN (Reason: pain (scale score 7-10)) Qty: 30 0RF ascorbic acid (vitamin C) [Vitamin C] 250 mg Tablet 500 mg PO BID Qty: 60 0RF docusate sodium 100 mg Capsule 100 mg PO BID Qty: 60 0RF zinc sulfate 50 mg zinc (220 mg) Capsule 220 mg PO QDAY Qty: 30 0RF Continued mirtazapine 45 mg tablet 45 mg PO HS bupropion HCl 150 mg tablet extended release 24 hr 150 mg PO QAM Referrals: Telly(Greg)Jdae PA-C [Primary Care Provider] Patient/Caregiver Discharge Instructions Discharge Activity: activity as tolerated Print Language: Libyan Activity Restrictions/Additional Instructions: May shower in 24 hours. Keep incisions clean and dry, cover with dry dressings daily. Wear abdominal binder at all times. Avoid lifting, straining, pulling or pushing for 8 weeks. May take over the counter laxatives if no bowel movement in 2 days. Follow up with Dr. Pacheco in 2 weeks, call [phone] for an appointment. Continue soft diet for 1 week then advance diet as tolerated. Stand Alone Forms: Lorri Award Info., Patient Portal Info Letter Discharge Order Discharge Orders: Discharge (Routine); Ordered 02/18/25 Ordered By: Daniela Pacheco PROCEDURES: Procedure Date 02/11/25 Procedures Exploratory laparotomy, extensive lysis of adhesions and mobilization of splenic flexure Reversal of colostomy
[2025-02-18 13:00] VITALS: BP 135/92; PULSE 105; RESP 19; TEMP 36.3; O2SAT 96
== END 2025-02-18 13:30 | disposition home or self-care (01) | DRG 223 ==
LOC: S2W1 10:55 → S3SX 02-14 07:34 → S2W1 02-15 14:47 → S3SX 02-15 14:47
PROVIDERS: Admitting Provider Surgery; PCP Nurse Practitioner Family; Visit Provider Surgery
PROC: 0DSL0ZZ Reposition Transverse Colon, Open Approach (ICD-10-PCS; CPT 49000; principal; 2025-02-11 13:00)
DX: Z43.3 Encounter for attention to colostomy (principal); K66.0 Peritoneal adhesions (postprocedural) (postinfection); K43.5 Parastomal hernia without obstruction or gangrene; Z85.038 Personal history of other malignant neoplasm of large intestine; Z92.21 Personal history of antineoplastic chemotherapy
CPT/HCPCS: 36415; 80048; 80053; 80069; 83735; 84100; 84478; 85025; 93005; 94640; 94664; A4649; A9270; J0131; J0612; J0694; J1171; J1650; J2250; J2371; J2470; J2704; J3010; J3475; J3480; J3490; J7030; J7050